=== PATIENT | female | born 1945 | race Caucasian/White ===

== ENCOUNTER 2017-11-28 07:00 | Inpatient (IN) | payer OTHER ==
[~2017-11-28] VITALS: Ht 152.4 cm; Wt 63.5 kg
[~2017-11-28 07:00] MED LIST: CARAFATE SU1 G/10 ML PO; LEVAQUIN500 MG PO; LIPITOR20 MG; LOSARTAN POTASS25 MG; PEPCID20 MG PO; PERCOCET 5/3251 TAB PO; SYNTHROID50 MCG
[2017-12-06] MEDS ORDERED: OXYC1TAB9 PO (07:41)
[2017-12-06] MEDS ORDERED: NEURONTIN300 MG PO (07:41)
== END 2017-12-06 09:35 | disposition home or self-care (01) | DRG 331 ==
LOC: O/R 12-02 05:45 → SURH 12-02 05:45
PROVIDERS: Colon & Rectal Surgery
PROC: 0DT84ZZ Resection of Small Intestine, Percutaneous Endoscopic Approach (ICD-10-PCS; 2017-12-02)
PROC: 0WQF4ZZ Repair Abdominal Wall, Percutaneous Endoscopic Approach (ICD-10-PCS; 2017-12-02)
PROC: 0DNE4ZZ Release Large Intestine, Percutaneous Endoscopic Approach (ICD-10-PCS; 2017-12-02)
PROC: 0DJD8ZZ Inspection of Lower Intestinal Tract, Via Natural or Artificial Opening Endoscopic (ICD-10-PCS; 2017-12-02)
PROC: 0DSN4ZZ Reposition Sigmoid Colon, Percutaneous Endoscopic Approach (ICD-10-PCS; principal; 2017-12-02 07:00)
DX: K56.52 Intestinal adhesions [bands] with complete obstruction (principal); Z43.3 Encounter for attention to colostomy; K43.5 Parastomal hernia without obstruction or gangrene; I10 Essential (primary) hypertension; K57.30 Diverticulosis of large intestine without perforation or abscess without bleeding

== ENCOUNTER 2021-07-13 12:09 | Outpatient (CLI) | payer OTHER ==
[~2021-07-13 12:09] MED LIST changes: +NEURONTIN300 MG PO; +OXYC1TAB9 PO
== END 2021-07-13 12:17 | disposition home or self-care (01) ==
LOC: RAD 12:09
PROVIDERS: ATTEND Internal Medicine Rheumatology
DX: M51.36 Other intervertebral disc degeneration, lumbar region (principal)

== ENCOUNTER 2024-07-17 09:46 | Inpatient (IN) | payer OTHER ==
[~2024-07-17] VITALS: Ht 157.5 cm; Wt 60.3 kg
[2024-07-17] MEDS ORDERED: INDERAL LA80 MG (09:55)
[2024-07-17] MEDS ORDERED: EVISTA60 MG (09:55)
[2024-07-17] MEDS ORDERED: ZETIA10 MG (09:55)
[2024-07-17] MEDS ORDERED: MYSOLINE50 MG (09:55)
[2024-07-17] MEDS ORDERED: WELLBUTRIN SR150 MG (09:56)
[2024-07-17] MEDS ORDERED: ZOLPIDEM TART1.75 MG (09:56)
[2024-07-17 10:51] LABS: HEMATOCRIT 37.9 % (36.0-45.00); HEMOGLOBIN 13.2 g/dL (12.0-15.00); MEAN CELL VOLUME 98.1 fL (80.00-100.00); MEAN CORPUSCULAR HEMOGLOBIN 34.1 pg (27.00-32.0); MEAN CORPUSCULAR HGB CONC 34.8 g/dl (32.0-36.0); PLATELET COUNT 246 K/uL (150-450); RED BLOOD COUNT 3.86 M/uL (4.00-6.00); RED CELL DISTRIBUTION WIDTH 13.2 % (11.5-14.5)
[2024-07-17 11:12] LABS: INR 1.05; PARTIAL THROMBOPLASTIN TIME 27.7 SECONDS (22.0-34.0)
[2024-07-17 11:13] LABS: PROTHROMBIN TIME 11.4 SECONDS (9.0-11.5)
[2024-07-17 11:24] LABS: ALBUMIN 3.3 gm/dL (3.4-5.0); BILIRUBIN TOTAL 0.48 mg/dL (0.3-1.2); BILIRUBIN,CONJUGATED 0.19 mg/dL (0.0-0.2); BILIRUBIN,UNCONJUGATED 0.29 mg/dL (0.0-0.6); CALCIUM 8.9 mg/dL (8.5-10.1); CREATININE SERUM 0.57 mg/dL (0.55-1.02); GFR 102.05; GLOBULINA 3.1 G/DL (2.4-3.5); POTASSIUM 3.87 mEq/L (3.5-5.1); TOTAL PROTEIN 6.4 gm/dL (6.4-8.2)
[2024-07-17] MEDS ORDERED: SODIUM CHLORIDE 0.45 % 1,000 ML IV SCH (11:30)
[2024-07-17 12:02] LABS: PH,URINE 6.5 (5.0-8.0); URINE APPEARANCE Clear; URINE BILIRRUBIN Negative (NEGATIVE); URINE BLOOD Negative; URINE COLOR Yellow; URINE GLUCOSE Negative (NEGATIVE); URINE KETONE Negative (NEGATIVE); URINE LEUKOCYTE Negative; URINE NITRATE Negative; URINE PROTEIN Negative (NEGATIVE); URINE UROBILINOGEN 0.2 E.U./dl
[2024-07-17 12:04] LABS: URINE BACTERIA 15.1 uL (0.0-1933); URINE EPITHELIAL CELLS 4.3 uL (0.0-38.8); URINE RBC 3.6 uL (0.0-20.8)
[2024-07-17 12:24] LABS: URINE WBC 1.2 uL (0.0-23.2)
[2024-07-17 12:54] VITALS: BP 145/75; O2SAT 98
[2024-07-17 15:17] VITALS: BP 120/79; O2SAT 96
[2024-07-18 00:24] VITALS: BP 146/70; O2SAT 96
[2024-07-18 06:34] LABS: HEMATOCRIT 36.8 % (36.0-45.00); MEAN CELL VOLUME 96.5 fL (80.00-100.00); MEAN CORPUSCULAR HEMOGLOBIN 34.1 pg (27.00-32.0); MEAN CORPUSCULAR HGB CONC 35.3 g/dl (32.0-36.0); PLATELET COUNT 240 K/uL (150-450); RED BLOOD COUNT 3.82 M/uL (4.00-6.00); RED CELL DISTRIBUTION WIDTH 13.2 % (11.5-14.5)
[2024-07-18] MEDS ORDERED: CEFTRIAXONE SODIUM 2,000 MG in DEXTROSE 5 % IN WATER 100 ML IV SCH (06:59)
[2024-07-18 07:14] LABS: BILIRUBIN TOTAL 0.46 mg/dL (0.3-1.2); BILIRUBIN,CONJUGATED 0.19 mg/dL (0.0-0.2); BILIRUBIN,UNCONJUGATED 0.27 mg/dL (0.0-0.6); CALCIUM 8.4 mg/dL (8.5-10.1); CREATININE SERUM 0.48 mg/dL (0.55-1.02); GFR 124.44; POTASSIUM 3.68 mEq/L (3.5-5.1); TOTAL PROTEIN 5.8 gm/dL (6.4-8.2)
[2024-07-18 07:25] LABS: TSH 2.51 uIU/mL (0.358-3.74)
[2024-07-18 07:37] LABS: COL EPI 92 SECONDS (82-175)
[2024-07-18 08:51] VITALS: BP 169/76; O2SAT 96
[2024-07-18] MEDS ORDERED: FAMOTIDINE/PF 20 MG/2 ML VIAL IV SCH (12:00)
[2024-07-18] MEDS ORDERED: LOSARTAN POTASSIUM 50 MG TABLET PO SCH (12:00)
[2024-07-19 01:25] VITALS: BP 136/66; O2SAT 100
[2024-07-19] MEDS ORDERED: IOVERSOL 320 MG/ML - 50 ML VIAL IV ONE (09:15)
[2024-07-19] MEDS ORDERED: GLUCAGON 1 MG VIAL IV NR (10:06)
[2024-07-19 17:01] VITALS: BP 138/71; O2SAT 94
[2024-07-20 00:45] VITALS: BP 120/73; O2SAT 100
== END 2024-07-20 10:52 | disposition home or self-care (01) | DRG 446 ==
LOC: ER 09:48 → SURH 12:42 → SEC-K 12:42 → SURH 14:07 → SEC-K 14:58 → SURH 15:00
PROVIDERS: Emergency Medicine; Internal Medicine Gastroenterology; ADMIT Internal Medicine; ATTEND Internal Medicine
PROC: 0FC98ZZ Extirpation of Matter from Common Bile Duct, Via Natural or Artificial Opening Endoscopic (ICD-10-PCS; 2024-07-19)
PROC: 0F798ZZ Dilation of Common Bile Duct, Via Natural or Artificial Opening Endoscopic (ICD-10-PCS; principal; 2024-07-19 10:00)
DX: K80.50 Calculus of bile duct without cholangitis or cholecystitis without obstruction (principal); I10 Essential (primary) hypertension; E03.9 Hypothyroidism, unspecified

== ENCOUNTER 2024-09-07 03:41 | Inpatient (IN) | payer OTHER ==
[~2024-09-07] VITALS: Ht 157.5 cm; Wt 130.6 kg
[~2024-09-07 03:41] MED LIST changes: +EVISTA60 MG; +INDERAL LA80 MG; +MYSOLINE50 MG; +WELLBUTRIN SR150 MG; +ZETIA10 MG; +ZOLPIDEM TART1.75 MG
[2024-09-07] MEDS ORDERED: CRESTOR40 MG PO (04:14)
[2024-09-07] MEDS ORDERED: PRIMIDONE50 MG PO (04:15)
[2024-09-07] MEDS ORDERED: PROPRANOLOL HCL20 MG PO (04:15)
[2024-09-07] MEDS ORDERED: CLONAZEPAM0.5 MG PO (04:16)
[2024-09-07] MEDS ORDERED: ZOLPIDEM TARTRA10 MG PO (04:16)
--- NOTE | 2024-09-07 04:25 | NUR ---
PTE ALERTA Y ORIENTADA X3 EN [facility]IA DE [place] [facility] [place]. PTE REFIERE SE REALIZO PROCEDIMIENTO ERCP- WITH STENT REMOVAL [facility]OR DR[facility] RAMOS EL MEGHAN DE [place]. REFIERE QUE DESDE ENTONCES A PRESENTADO DOLOR ABDOMINAL Y NAUSEAS. ES PTE DE DR. DEBBIE MAYNARD.
[2024-09-07] MEDS ORDERED: RINGERS SOLUTION,LACTATED 1,000 ML IV STA (06:23)
[2024-09-07] MEDS ORDERED: MEPERIDINE HCL/PF 50 MG/ML VIAL IM STA (06:24)
[2024-09-07] MEDS ORDERED: PROMETHAZINE HCL 50 MG/ML AMPUL IM STA (06:25)
[2024-09-07] MEDS ORDERED: HYOSCYAMINE SULFATE 0.125 MG TAB.SUBL SL ONE (06:30)
--- NOTE | 2024-09-07 06:34 | NUR ---
SE ORIENTA PTE SOBRE TX A SEGUIR, LA MISMA REFIERE ENTENDER. SE TYRONE MUESTRA DE LAB, SE CANALIZA Y SE ADMINISTRA MED POPPY ORDEN MEDICA
[2024-09-07 07:18] LABS: HEMATOCRIT 38.7 % (36.0-45.00); HEMOGLOBIN 13.6 g/dL (12.0-15.00); MEAN CELL VOLUME 95.9 fL (80.00-100.00); MEAN CORPUSCULAR HEMOGLOBIN 33.7 pg (27.00-32.0); MEAN CORPUSCULAR HGB CONC 35.2 g/dl (32.0-36.0); PLATELET COUNT 214 K/uL (150-450); RED BLOOD COUNT 4.04 M/uL (4.00-6.00); RED CELL DISTRIBUTION WIDTH 13.5 % (11.5-14.5)
[2024-09-07 08:30] LABS: INR 1.07; PARTIAL THROMBOPLASTIN TIME 26.5 SECONDS (22.0-34.0); PROTHROMBIN TIME 11.6 SECONDS (9.0-11.5)
[2024-09-07 08:48] LABS: ALBUMIN 3.1 gm/dL (3.4-5.0); BILIRUBIN TOTAL 4.63 mg/dL (0.3-1.2); CALCIUM 8.8 mg/dL (8.5-10.1); CREATININE SERUM 0.47 mg/dL (0.55-1.02); GFR 127.5; GLOBULINA 3.1 G/DL (2.4-3.5); POTASSIUM 3.54 mEq/L (3.5-5.1); TOTAL PROTEIN 6.2 gm/dL (6.4-8.2)
[2024-09-07 09:20] LABS: C-REACTIVE PROTEIN 3.98 MG/DL (0.00-0.29)
[2024-09-07] MEDS ORDERED: PIPERACILLIN/TAZOBACTAM SODIUM 3.375 GM VIAL IV ONE (11:00)
[2024-09-07] MEDS ORDERED: PIPERACILLIN/TAZOBACTAM SODIUM 3.375 GM in 0.9 % SODIUM CHLORIDE 100 ML IV SCH (18:31)
[2024-09-07] MEDS ORDERED: PANTOPRAZOLE SODIUM 40 MG/VIAL VIAL IV SCH (18:32)
[2024-09-07] MEDS ORDERED: MEPERIDINE HCL/PF 25 MG/ML VIAL IV PRN (18:45)
[2024-09-07] MEDS ORDERED: 0.9 % SODIUM CHLORIDE 1,000 ML IV SCH (18:45)
[2024-09-07] MEDS ORDERED: ENALAPRILAT DIHYDRATE 1.25 MG/ML VIAL IV PRN (19:00)
[2024-09-07 19:57] LABS: ALBUMIN 3.1 gm/dL (3.4-5.0); BILIRUBIN TOTAL 6.89 mg/dL (0.3-1.2); BILIRUBIN,CONJUGATED 5.7 mg/dL (0.0-0.2); BILIRUBIN,UNCONJUGATED 1.19 mg/dL (0.0-0.6); TOTAL PROTEIN 6.4 gm/dL (6.4-8.2)
[2024-09-07] MEDS ORDERED: CLONAZEPAM 0.5 MG TABLET PO SCH (21:00)
[2024-09-07] MEDS ORDERED: ZOLPIDEM TARTRATE 10 MG TABLET PO SCH (21:00)
[2024-09-08 01:48] VITALS: BP 127/69; O2SAT 96
[2024-09-08 10:18] VITALS: BP 144/72; O2SAT 98
[2024-09-08 18:24] VITALS: BP 178/72
[2024-09-09 02:27] VITALS: BP 123/63
[2024-09-09 08:51] LABS: ALBUMIN 2.6 gm/dL (3.4-5.0); BILIRUBIN TOTAL 2.08 mg/dL (0.3-1.2); CALCIUM 8.2 mg/dL (8.5-10.1); CREATININE SERUM 0.43 mg/dL (0.55-1.02); GFR 141.28; GLOBULINA 2.5 G/DL (2.4-3.5); POTASSIUM 3.16 mEq/L (3.5-5.1); TOTAL PROTEIN 5.1 gm/dL (6.4-8.2)
[2024-09-09 09:57] VITALS: BP 124/64; O2SAT 99
[2024-09-09 20:23] VITALS: BP 133/59
[2024-09-10 01:51] VITALS: BP 138/70
[2024-09-10 09:06] VITALS: BP 165/74; O2SAT 97
[2024-09-10 11:56] LABS: HEMATOCRIT 32.6 % (36.0-45.00); HEMOGLOBIN 11.6 g/dL (12.0-15.00); MEAN CELL VOLUME 95.2 fL (80.00-100.00); MEAN CORPUSCULAR HEMOGLOBIN 33.7 pg (27.00-32.0); MEAN CORPUSCULAR HGB CONC 35.4 g/dl (32.0-36.0); PLATELET COUNT 211 K/uL (150-450); RED BLOOD COUNT 3.43 M/uL (4.00-6.00); RED CELL DISTRIBUTION WIDTH 13.6 % (11.5-14.5)
[2024-09-10 12:38] LABS: ALBUMIN 2.5 gm/dL (3.4-5.0); BILIRUBIN TOTAL 1.31 mg/dL (0.3-1.2); CALCIUM 8.2 mg/dL (8.5-10.1); CREATININE SERUM 0.35 mg/dL (0.55-1.02); GFR 179.16; GLOBULINA 2.8 G/DL (2.4-3.5); POTASSIUM 3.27 mEq/L (3.5-5.1); TOTAL PROTEIN 5.3 gm/dL (6.4-8.2)
[2024-09-10] MEDS ORDERED: POTASSIUM CHLORIDE 20MEQ/100ML H2O PB IV NR (13:00)
[2024-09-10 19:30] VITALS: BP 160/84; O2SAT 96
[2024-09-11 01:07] VITALS: BP 129/75
[2024-09-11 10:05] VITALS: BP 174/80; O2SAT 96
[2024-09-11 19:16] VITALS: BP 160/77; O2SAT 96
[2024-09-12 02:15] VITALS: BP 100/64
[2024-09-12 09:29] VITALS: BP 138/78; O2SAT 99
[2024-09-12 12:26] LABS: HEMATOCRIT 36.9 % (36.0-45.00); HEMOGLOBIN 12.9 g/dL (12.0-15.00); MEAN CORPUSCULAR HEMOGLOBIN 33.7 pg (27.00-32.0); MEAN CORPUSCULAR HGB CONC 35.1 g/dl (32.0-36.0); PLATELET COUNT 229 K/uL (150-450); RED BLOOD COUNT 3.84 M/uL (4.00-6.00); RED CELL DISTRIBUTION WIDTH 13.4 % (11.5-14.5)
[2024-09-12 13:20] LABS: ALBUMIN 2.9 gm/dL (3.4-5.0); BILIRUBIN TOTAL 1.24 mg/dL (0.3-1.2); CALCIUM 8.5 mg/dL (8.5-10.1); GFR 231.79; GLOBULINA 3.2 G/DL (2.4-3.5); POTASSIUM 3.7 mEq/L (3.5-5.1); TOTAL PROTEIN 6.1 gm/dL (6.4-8.2)
[2024-09-12 13:40] LABS: CREATININE SERUM 0.28 mg/dL (0.55-1.02)
[2024-09-12] MEDS ORDERED: LIDOCAINE HCL 2% 20ML VIAL IJ ONE (18:00)
[2024-09-12] MEDS ORDERED: CEFAZOLIN SODIUM 1,000 MG VIAL IV ONE (18:00)
[2024-09-12] MEDS ORDERED: ONDANSETRON HCL 2 MG/ML VIAL IV PRN (19:00)
[2024-09-12] MEDS ORDERED: SUGAMMADEX SODIUM 200 MG/2 ML VIAL IV ONE (19:15)
[2024-09-12] MEDS ORDERED: MORPHINE SULFATE 4 MG/ML VIAL IV ONE ×2 (19:20→20:35)
[2024-09-12] MEDS ORDERED: MORPHINE SULFATE 2 MG/ML SYRINGE IV SCH (21:00)
[2024-09-12 22:16] VITALS: BP 160/68
[2024-09-13] MEDS ORDERED: ACETAMINOPHEN 500 MG GEL..CAP PO SCH
[2024-09-13] MEDS ORDERED: GABAPENTIN 300 MG CAPSULE PO SCH (01:00)
[2024-09-13 02:00] VITALS: BP 137/63
[2024-09-13 09:25] VITALS: BP 131/65; O2SAT 97
== END 2024-09-13 14:20 | disposition home or self-care (01) | DRG 419 ==
LOC: ER 03:43 → MEDJ 19:12
PROVIDERS: General Practice; Internal Medicine; Student in an Organized Health Care Education/Training Program; ADMIT Internal Medicine; ATTEND Internal Medicine
PROC: BW40ZZZ Ultrasonography of Abdomen (ICD-10-PCS; 2024-09-07)
PROC: BW21YZZ Computerized Tomography (CT Scan) of Abdomen and Pelvis using Other Contrast (ICD-10-PCS; 2024-09-07)
PROC: BF37ZZZ Magnetic Resonance Imaging (MRI) of Pancreas (ICD-10-PCS; 2024-09-07)
PROC: 0FJD8ZZ Inspection of Pancreatic Duct, Via Natural or Artificial Opening Endoscopic (ICD-10-PCS; 2024-09-11)
PROC: 0FT44ZZ Resection of Gallbladder, Percutaneous Endoscopic Approach (ICD-10-PCS; principal; 2024-09-12 15:30)
DX: K80.51 Calculus of bile duct without cholangitis or cholecystitis with obstruction (principal); K80.20 Calculus of gallbladder without cholecystitis without obstruction